=== PATIENT | female | born 1955 | race Caucasian/White ===

== ENCOUNTER 2021-03-01 02:01 | Inpatient (IN) | payer OTHER ==
[2021-03-01] VITALS (12 sets, daily range): BP systolic 126–173; BP diastolic 56–140
[~2021-03-01] VITALS: Ht 165.1 cm; Wt 88.9 kg
[2021-03-01] MEDS ORDERED: NORVASC10 MG PO (02:18)
[2021-03-01] MEDS ORDERED: TENORMIN25 MG PO (02:18)
[2021-03-01] MEDS ORDERED: HUMALOG JU100 UNIT/1 SUBQ (02:19)
[2021-03-01 02:40] LABS: ABSOLUTE BASOPHILS 0.1 thou/uL (0.0-0.2); ABSOLUTE EOSINOPHILS 0.1 thou/uL (0.0-0.7); ABSOLUTE LYMPHOCYTES 2.6 thou/uL (0.8-5.3); BASOPHILS 0.7 %; EOSINOPHILS 1.3 %; HEMATOCRIT 37.3 % (37.0-47.0); HEMOGLOBIN 12.7 gm/dL (12.0-15.0); LYMPHOCYTES 26.8 %; MCH 30.5 pg (26.0-34.0); MCHC 34.1 g/dL (28.0-37.0); MCV 89.3 fL (80.0-100.0); MONOCYTES 9.9 %; MPV 7.4 fl. (7.2-11.1); NUCLEATED RBCS 0 /100WBC; PLATELET COUNT* 312 thou/uL (150-400); POLYS 61.3 %; RBC 4.17 mil/uL (4.20-5.00); RDW-CV 14.5 % (10.5-14.5); WBC 9.9 thou/uL (4.0-11.0)
[2021-03-01 02:46] LABS: CALCIUM 9.4 mg/dL (8.5-10.1)
[2021-03-01 02:50] LABS: TOTAL BILIRUBIN 0.2 mg/dL (<0.1-1.0); TOTAL PROTEIN 7.9 g/dL (6.4-8.2)
[2021-03-01 03:19] LABS: APTT 27.3 Seconds (25.0-31.3); PROTIME 10.5 Seconds (9.20-11.50)
--- NOTE | 2021-03-01 03:41 | NUR ---
CODE STROKE CANCELLED
[2021-03-01 04:10] LABS: URINE BILIRUBIN NEGATIVE (Negative); URINE BLOOD NEGATIVE (Negative); URINE CLARITY CLEAR; URINE COLOR STRAW; URINE GLUCOSE-RANDOM 2+ (Negative); URINE KETONES NEGATIVE (Negative); URINE LEUKOCYTES-REFLEX 1+ (Negative); URINE PROTEIN NEGATIVE (Negative); URINE SPECIFIC GRAVITY <= 1.005 (1.005-1.030); URINE UROBILINOGEN 0.2 E.U./dl (0.2-1.0)
[2021-03-01] MEDS ORDERED: METFORMIN HCL500 M3 PO (04:10)
[2021-03-01] MEDS ORDERED: LEVEMIR100 UNIT/1 SUBQ (04:11)
[2021-03-01] MEDS ORDERED: HUMALOG100 UNIT/1 SUBQ (04:12)
[2021-03-01] MEDS ORDERED: PLAVIX 75 MG TA75 MG PO (04:12)
--- NOTE | 2021-03-01 04:14 | NUR ---
0318 CTA BEING P[ERFORMED 0335 CTA COMPLETE 0340 BACK TO ER. URINE OBTAINED
[2021-03-01 04:18] LABS: AMP/METHAMP Negative (Negative); BARBITURATES Negative (Negative); BENZODIAZEPINES Negative (Negative); COCAINE Negative (Negative); METHADONE Negative (Negative); OPIATES Negative (Negative); PCP Negative (Negative); THC Negative (Negative); URINE NITRITE-REFLEX POSITIVE (Negative)
[2021-03-01 05:55] LABS: BACTERIA-REFLEX >30 Many /HPF (None Seen); CASTS None Seen /LPF (None Seen); CRYSTALS None Seen /LPF (None Seen); MUCUS 0-3 Light strn/LPF (None Seen); SQUAMOUS 0-3 Few /LPF (0-3); URINE RBC 0-2 Rare /HPF (0-2); URINE WBC-REFLEX 6-15 Few /HPF (0-5)
[2021-03-01 09:41] LABS: CHOLESTEROL 131 mg/dL (<200); HDL CHOLESTEROL 56 mg/dL (>40); LDL CHOLESTEROL 50 mg/dL (<100); TC:HDL 2.3 Ratio (Not establshd); TRIGLYCERIDE 125 mg/dL (<150); VLDL 25 mg/dL (<40)
[2021-03-01 09:42] LABS: SERUM ASSESSMENT Clear
--- NOTE | 2021-03-01 11:11 | EKG ---
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 : 1955 Requested By: Abby Ray Order Number: [id number] MD: Silvano Raymundo Measurements Intervals [place] Rate: 87 P: 43 AR: 219 QRS: 45 QRSD: 102 T: -17 QT: 413 QTc: 497 Interpretive Statements Sinus rhythm Borderline prolonged AR interval Borderline repolarization abnormality Borderline prolonged QT interval Baseline wander in lead(s) I Minor nonspecific ST-T alterations No previous ECG available for comparison Electronically Signed On 03-01-2021 11:11:36 CDT by Silvano Raymundo [email or web address] <ELECTRONICALLY SIGNED> By: Silvano Raymundo MD, FACC 03/01/21 1111 024 024 Silvano Raymundo MD, FAC /EPI
--- NOTE | 2021-03-01 13:01 | 2DMMODE ---
[place] [address] 2 D/M-MODE ECHOCARDIOGRAM Name: THERESA DEE Room: [place] [address] ADM IN [facility]#: [id number] Admission: 03/01/21 Attend Phys: Rome Haynes, Discharge: Date of : 53 Date of Service: 03/01/21 1301 Report #: [id number] THIS REPORT FOR: cc: Jazmin Camargo MD, Sarah Beth MD Holkins,Silvano Wheeler MD [facility] ~ APPROVED REPORT Study performed: 03/01/2021 09:52:44 EXAM: Comprehensive 2D, Doppler, and color-flow Echocardiogram Patient Location: In-Patient Room #: er Status: routine BSA: 1.98 HR: 64 bpm BP: 151/69 mmHg Rhythm: NSR Other Information Study Quality: Good Indications CVA/TIA Echo Enhancing Agent Indication: Rule out Shunt Agent(s) / Amount(s) Used: Agitated Saline 101 cc 2D Dimensions IVSd: 10.69 (7-11mm) LVOT Diam: 19.87 (18-24mm) LVDd: 47.17 mm PWd: 9.65 (7-11mm) Ascending Ao: 33.21 (22-36mm) LVDs: 28.14 (25-40mm) Aortic Root: 32.47 mm Volumes Left Atrial Volume (Systole) LA ESV Index: 43.30 mL/m2 Aortic Valve AoV Peak Garett.: 2.28 m/s AO Peak Gr.: 20.73 mmHg LVOT Max P.74 mmHg AO Mean Gr.: 12.62 mmHg LVOT Mean P.44 [place] [address] 2 D/M-MODE ECHOCARDIOGRAM Name: THERESA DEE Room: [address] IN [facility]#: [id number] Admission: 03/01/21 Attend Phys: Rome Haynes, Discharge: Date of : 53 Date of Service: 03/01/21 1301 Report #: [id number] LVOT Max V: 1.09 m/s AO V2 VTI: 57.47 cm LVOT Mean V: 0.72 m/s BARBARA (VTI): 1.59 cm2 LVOT V1 VTI: 29.49 cm Mitral Valve MV Mean Gr.: 3.48 mmHg E/A Ratio: 1.14 MV Decel. Time: 353.24 ms MV E Max Garett.: 1.45 m/s MV PHT: 102.44 ms MVA (PHT): 2.15 cm2 TDI E/Lateral E': 16.11 E/Medial E': 20.71 Medial E' Garett.: 0.07 m/s Lateral E' Garett.: 0.09 m/s Pulmonary Valve PV Peak Garett.: 0.99 m/s PV Peak Gr.: 3.89 mmHg Tricuspid Valve RAP Estimate: 5.00 mmHg TR Peak Gr.: 26.35 mmHg RVSP: 31.00 mmHg PA Pressure: 31.00 mmHg Left Ventricle The left ventricle is normal size. There is normal LV segmental wall motion. There is normal left ventricular wall thickness. Left ventricular systolic function is normal. The left ventricular ejection fraction is within the normal range. LVEF is 55-60%. The left ventricular diastolic function is normal. Right Ventricle The right ventricle is normal size. The right ventricular systolic function is normal. Atria Left atrium is mildly dilated. The interatrial septum is intact with no evidence for an atrial septal defect. The right atrium size is normal. Aortic Valve Moderate aortic valve sclerosis. No aortic regurgitation is present. Mild aortic stenosis. Mitral Valve Moderate mitral annular calcification. [place] [address] 2 D/M-MODE ECHOCARDIOGRAM Name: LUIZTHERESA Eric Room: [address] IN ..#: [id number] Admission: 03/01/21 Attend Phys: Rome Haynes, Discharge: Date of : 53 Date of Service: 03/01/21 1301 Report #: [id number] evidence of mitral valve stenosis. Tricuspid Valve The tricuspid valve is normal in structure. Mild tricuspid regurgitation. Mild pulmonary hypertension. Pulmonic Valve The pulmonary valve is normal in structure. There is no pulmonic valvular regurgitation. Great Vessels The aortic root is normal in size. IVC is normal in size and collapses >50% with inspiration. Pericardium There is no pericardial effusion. <Conclusion> The left ventricle is normal size. There is normal left ventricular wall thickness. Left ventricular systolic function is normal. The left ventricular ejection fraction is within the normal range. LVEF is 55-60%. The left ventricular diastolic function is normal. The right ventricle is normal size. Left atrium is mildly dilated. The right atrium size is normal. Moderate aortic valve sclerosis. No aortic regurgitation is present. Mild aortic stenosis. Moderate mitral annular calcification. Trace mitral regurgitation. No evidence of mitral valve stenosis. The tricuspid valve is normal in structure. Mild tricuspid regurgitation. Mild pulmonary hypertension. IVC is normal in size and collapses >50% with inspiration. There is no pericardial effusion. There is normal LV segmental wall motion. The interatrial septum is intact with no evidence for an atrial septal defect. <ELECTRONICALLY SIGNED> By: Silvano Raymundo MD, FACC 03/01/21 1301 1301 1301 Silvano Raymundo MD, FACC /INF
--- NOTE | 2021-03-01 15:46 | EKG ---
[place] [address] ELECTROCARDIOGRAM REPORT Name: LUIZTHERESA A Room: [place] [address] ADM IN [facility]#: [id number] Admission: 03/01/21 Attend Phys: Rome Haynes, Discharge: Date of : 53 Date of Service: 03/01/21 1028 Report #: [id number] THIS REPORT FOR: //name// [facility] ED Test Date: 2021-03-01 Test Time: 10:28:54 Pat Name: THERESA DEE Department: Room: [place] [address] Gender: F Customer Sales Representative: : 1955 Requested By: Alisa Munoz Order Number: [id number] Sulema MD: Silvano Raymundo Measurements Intervals [place] Rate: 53 P: 20 IN: 216 QRS: 52 QRSD: 98 T: 44 QT: 503 QTc: 473 Interpretive Statements Sinus rhythm Borderline prolonged IN interval Baseline wander in lead(s) II,III,aVF Compared to ECG 03/01/2021 02:41:53 No significant changes Electronically Signed On 03-01-2021 15:46:09 CDT by Silvano Raymundo [email or web address] <ELECTRONICALLY SIGNED> By: Silvano Raymundo MD, [facility] 03/01/21 1546 1028 1028 Silvano Raymundo MD, [facility] /EPI
--- NOTE | 2021-03-01 20:12 | NUR ---
PT ARRIVED FROM ED AT 1630, ASSESSMENT CHARTED, VITALS CHARTED, PER ED PT UP AD YASEMIN WITH NO ASSISTANCE. WILL CONTINUE TO MONITOR.
[2021-03-02] VITALS (15 sets, daily range): BP systolic 137–202; BP diastolic 56–161
[2021-03-02 02:06] LABS: GLYCOHEMOGLOBIN (HGB A1C) 6.8 % (4.8-5.6)
[2021-03-02 04:16] LABS: HEMATOCRIT 36.6 % (37.0-47.0); HEMOGLOBIN 12.2 gm/dL (12.0-15.0); MCH 29.8 pg (26.0-34.0); MCHC 33.4 g/dL (28.0-37.0); MPV 7.5 fl. (7.2-11.1); RBC 4.11 mil/uL (4.20-5.00); RDW-CV 14.6 % (10.5-14.5); WBC 6.9 thou/uL (4.0-11.0)
[2021-03-02 04:32] LABS: ALBUMIN 3.5 g/dL (3.4-5.0); CALCIUM 9.1 mg/dL (8.5-10.1); MAGNESIUM 2.1 mg/dL (1.8-2.4); POTASSIUM 3.8 mmol/L (3.5-5.1); TOTAL BILIRUBIN 0.2 mg/dL (<0.1-1.0); TOTAL PROTEIN 7.3 g/dL (6.4-8.2)
[2021-03-02] MEDS ORDERED: CLONIDINE HCL0.1 MG PO (08:35)
[2021-03-02] MEDS ORDERED: HYDRALAZINE 2525 MG PO (08:35)
[2021-03-02] MEDS ORDERED: TOPROL XL100 MG PO (08:36)
[2021-03-02] MEDS ORDERED: LEVO-T25 MCG PO (08:37)
[2021-03-02] MEDS ORDERED: JARDIANCE25 MG PO (08:38)
[2021-03-02] MEDS ORDERED: LIPITOR40 MG PO (08:39)
[2021-03-02] MEDS ORDERED: BENICAR40 MG PO (08:40)
--- NOTE | 2021-03-02 09:11 | NUR ---
CM S/W PT WH O INDICATED SHE LIVES AT HOME WITH SPOUSE, KWABENA. SPOUSE WORKS FROM HOME SO HE IS WITH PT THROUGHOUT THE DAY. PT SON ALSO LIVES THERE. PT HAD STROKE IN 2012, SO HAS WALKER SHE ISNT CURRENTLY USING. PT DID OUTPT THERAPY AT [facility] AFTER PREV STROKE. PT PREFERS OUTPT IF THERAPY IS NEEDED. PT/OT EVALS ARE NEEDED. PT DENIES HX WITH HH OR SNF. PT HAD MRI. RECORDS WERE REQUESTED FOR [facility]'S R/T 2011 STROKE HX. NIH IS 0. CM TO CONT TO FOLLOW.
--- NOTE | 2021-03-02 10:05 | NUR ---
THIS [employer] IS IN AGREEMENT WITH THE DOCUMENTED EVALUATION AND RECOMMENDATIONS BY DESIRAE MCKEON FOR THIS DAY. SHUN PACKERT
--- NOTE | 2021-03-02 18:29 | NUR ---
PT A&O x4. NIH 0 THE WHOLE SHIFT. SHE CLEANED HERSELF AND WALKED WITH PT. UP AD YASEMIN. VSS. TELE STATUS.
--- NOTE | 2021-03-02 19:47 | NUR ---
193 REPORT TO FLOOR 1946 PT TO RM 205 VIA W/C IN STABLE CONDITION. NO C/O OF PAIN OR SIGNS OF SOA AT THIS TIME.
[2021-03-03 08:00] VITALS: BP 149/70
[2021-03-03] MEDS ORDERED: MACROBID 100 M100 MG PO (09:21)
[2021-03-03] MEDS ORDERED: ASA81BEC PO (09:21)
[2021-03-03 11:00] VITALS: BP 149/70
--- NOTE | 2021-03-03 12:21 | NUR ---
Pt discharging to home today. Pt declined HH. CM provided Pt with a list of endocrinologists.
--- NOTE | 2021-03-08 12:48 | CON ---
[address] [address] CONSULTATION Name: THERESA DEE Eric Room: [address] IN .R.#: [id number] Admission: 03/01/21 Attend Phys: Rome Haynes MD Discharge: 03/03/21 Date of : 53 Report #: [id number] THIS REPORT FOR: cc: Jazmin Camargo MD, Sarah Beth MD Khosla, Parveen K. MD ~ DOC #: [id number] Ismael Montaño MD DATE OF CONSULTATION: 03/01/2021 HISTORY OF PRESENT ILLNESS: This is a 65-year-old female patient who was seen by me early this morning in Emergency Room. I had multiple discussions with the Emergency Room physician. I had talked to the family. This patient apparently has a history of stroke in the past in 2011, when she lost vision and was very confused. She was in [facility] and I do not have any records available. She went to sleep around 10:00 last night and she got up around 1:00 and she was confused and her speech was very slurred. Since then, her blood sugar had been fluctuating. It fluctuated even before she came to the hospital because the patient's daughter has a graph of the blood sugar. She did not have any active seizures. REVIEW OF SYSTEMS: Indicate the patient has diabetes, looks like it is fluctuating. She has a history of stroke in 2011. I do not have any records. She had rapid heart rate, but I do not know whether it was paroxysmal supraventricular tachycardia or something else. She has a history of hypertension, hyperlipidemia, metabolic syndrome and possible neuropathy. She had C-sections in the past. Rest of the 10-point review of system was noncontributory. She has taken Plavix since her stroke. PAST MEDICAL HISTORY: Positive for stroke. FAMILY HISTORY: Negative for early age stroke. SOCIAL HISTORY: She does not use alcohol. PHYSICAL EXAMINATION: Indicates that she is alert. She is responsive. She can talk. She still gets stuck on words sometime, but other time, her talk is pretty spontaneous. I do not know what her baseline is, because she had similar difficulty with a stroke the last time. Cranial nerve examination II-XII looks mostly unremarkable. Neuromuscular examination looks symmetrical. No cerebellar sign. I could not look at the patient's fundi. Her vision and hearing looks okay. She does not appear to have any edema, cyanosis or jaundice. Cardiac [place] [address] CONSULTATION Name: THERESA DEE Room: [address]#: [id number] Admission: 03/01/21 Attend Phys: Rome Haynes MD Discharge: 03/03/21 Date of : 53 Report #: [id number] I reviewed the patient's CT angio and perfusion. It does show stenosis, but no emboli. It is difficult to tell how much finding is secondary to stroke if she had one and how much is because of hypoglycemia. Before talking to me, Emergency Room physician has already talked to the [facility]'s stroke team and they have indicated no TPA and no intervention. I talked to the patient and the about the option. This patient woke up with a stroke, the last known normal was 10:00 or so. When I saw the patient and when I was consulted, she was outside the window for TPA. Otherwise, also her symptoms have significantly improved and when I saw her, except for minor hesitation while word finding, she was pretty much back to the baseline. She does have stenosis, but studies have indicated that those stenoses need to be managed conservatively in this patient because stenting does not help. I will try to get the record from [facility] in this patient, if we can find the record in 2011. I spent more than 50 minutes of time taking care of this patient and majority was spent counseling and coordinating. Thank you very much for this referral. MD LUISA Ramon/AGUSTÍN <ELECTRONICALLY SIGNED> By: Ismael Montaño MD 03/08/21 1248 0935 [id number] Montaño MD /nt
== END 2021-03-03 13:00 | disposition home or self-care (01) | DRG 637 ==
LOC: M.ERS 02:01 → M.TBA-ER 05:24 → M.2W 05:24 → M.ICU 16:32 → M.2W 03-02 20:02
PROVIDERS: Internal Medicine; Personal Emergency Response Attendant; ADMIT Internal Medicine; ATTEND Internal Medicine
DX: E11.649 Type 2 diabetes mellitus with hypoglycemia without coma (principal); G93.41 Metabolic encephalopathy; N39.0 Urinary tract infection, site not specified; R47.01 Aphasia; E88.81 Metabolic syndrome and other insulin resistance; Z20.822 Contact with and (suspected) exposure to COVID-19; I10 Essential (primary) hypertension; E78.5 Hyperlipidemia, unspecified; Z86.73 Personal history of transient ischemic attack (TIA), and cerebral infarction without residual deficits; Z88.0 Allergy status to penicillin; Z79.899 Other long term (current) drug therapy